=== PATIENT | male | born 1970 | race Caucasian/White ===

== ENCOUNTER 2021-01-07 01:34 | Day surgery (SDC) | payer BC, SELFPAY ==
[2020-12-30 15:11] VITALS: BMI 35.4
[2021-01-07 09:40] VITALS: BP 134/89; PULSE 90; RESP 18; TEMP 35.8; O2SAT 97; BMI 37.0
[2021-01-07] MEDS: LACTATED RINGERS 1,000 ML 150 ML IV CONT (09:51)
--- NOTE | 2021-01-07 10:12 | WPDANESEPPF ---
Anes - Initial Pre Proc Eval Procedure: Operation Date: 01/07/21 10:15 Proposed Procedures p Screening Colonoscopy - Gabriel Blackman MD Date/Time: 01/07/21 10:12 Surgeon: Gabriel Blackman MD Pre Op Diagnosis: hx of colon polyps Patient Data Age: 50 Gender: M Height: 1.75 m Weight: 114 kg Last Vital Signs Temp 96.5 F L 01/07/21 09:40 Pulse 90 01/07/21 09:40 Resp 18 01/07/21 09:40 BP 134/89 01/07/21 09:40 Pulse Ox 97 01/07/21 09:40 Allergies Allergy/AdvReac Type Severity Reaction Status Date / Time GAIL Inhibitors Allergy Unknown Hives Verified 01/07/21 09:38 Home Medications Medication Instructions Recorded Confirmed Type syringe with needle 1 mL 27 x 1/2 #50 each 03/06/20 01/07/21 Rx testosterone cypionate 200 mg/mL See Rx Instructions IM WEEKLY #10 11/10/20 01/07/21 Rx intramuscular oil ml olmesartan 20 mg tablet 20 mg PO DAILY #30 tablet 11/27/20 01/07/21 Rx atorvastatin 40 mg PO DAILY 12/30/20 01/07/21 History cholecalciferol (vitamin D3) 25 mcg PO DAILY 12/30/20 01/07/21 History [Vitamin D3] Patient hx anesthesia problems: none Family hx anesthesia problems: none PMFSH Past Medical History Medical History (Updated 01/07/21 @ 10:12 by Michael Diaz MD) Benign essential hypertension Hyperlipidemia, unspecified KIARRA (obstructive sleep apnea) Family History Family History Father Hypertension Family history of elevated blood lipids Family history of lung cancer Mother Family history of diabetes mellitus in first degree relative Family history of pancreatic cancer Social History Social History Smoking status: Never smoker Alcohol intake: current Drinks per week: 1 Substance use: never Living arrangements: alone Spiritual care concerns: No Anes - Eval Final PreProcedure Day of Procedure 01/07/21 10:12 Patient weight: obese Heart: regular rate and rhythm Lungs: clear to auscultation Airway: Mallampati scale class III Neurological: alert and oriented Last oral intake: >/= 8 hours ASA classification: III Emergent: no Anesthetic plan: proceed Anesthesia type and monitoring: general GIVS and standard monitoring Informed Consent: The patient's anesthetic plan and its attendant risks and benefits were discussed with the patient/family/POA. Questions were solicited and answers provided to the satisfaction of the patient/family/POA.
--- NOTE | 2021-01-07 10:23 | P.CONGI_ITS ---
Assessment and Plan Assessment and plan (1) History of colon polyps: Code(s): Z86.010 - Personal history of colonic polyps Status: Acute Assessment and Plan: Patient has a history of colon polyps for this reason surveillance colonoscopy is recommended now added intervals in the future. GI Consult Note Consult date/time: 01/07/21 10:23 HPI: Dany Nieto is a 50 year old male Presents for screening colonoscopy. Patient states his current weight appetite bowel movements are normal. He denies abdominal pain. He has had no bleeding. Last colonoscopy 2016 revealed colon polyps. He presents today for follow-up examination. Review of Systems Review of Systems: All systems reviewed & are unremarkable except as noted in HPI and below PMFSH Past Medical History Medical History (Updated 01/07/21 @ 10:12 by Michael Diaz MD) Benign essential hypertension Hyperlipidemia, unspecified KIARRA (obstructive sleep apnea) Family History Family History Father Hypertension Family history of elevated blood lipids Family history of lung cancer Mother Family history of diabetes mellitus in first degree relative Family history of pancreatic cancer Social History Social History Smoking status: Never smoker Alcohol intake: current Drinks per week: 1 Substance use: never Living arrangements: alone Spiritual care concerns: No Meds Home Medications and Allergies Home Medications Medication Instructions Recorded Confirmed Type syringe with needle 1 mL 27 x 1/2 #50 each 03/06/20 01/07/21 Rx testosterone cypionate 200 mg/mL See Rx Instructions IM WEEKLY #10 11/10/20 01/07/21 Rx intramuscular oil ml olmesartan 20 mg tablet 20 mg PO DAILY #30 tablet 11/27/20 01/07/21 Rx atorvastatin 40 mg PO DAILY 12/30/20 01/07/21 History cholecalciferol (vitamin D3) 25 mcg PO DAILY 12/30/20 01/07/21 History [Vitamin D3] Allergies Allergy/AdvReac Type Severity Reaction Status Date / Time GAIL Inhibitors Allergy Unknown Hives Verified 01/07/21 09:38 Vital Signs Vital Signs - 24 hr 01/07/21 09:40 Temperature 96.5 F L Pulse Rate 90 Respiratory Rate 18 Blood Pressure 134/89 Pulse Oximetry 97 Exam Narrative: Physical exam reveals patient be alert. Vital signs stable. HEENT exam is unremarkable. Patient is anicteric. Lungs are clear to auscultation and percussion. Heart is without murmur or extra sounds. A bdominal exam bowel sounds are present soft nontender with no organomegaly. Digital external rectal exam is normal.
[2021-01-07 10:59] VITALS: BP 127/78; PULSE 89; RESP 31; O2SAT 93
[2021-01-07 11:09] VITALS: BP 132/89; PULSE 87; RESP 19; O2SAT 93
[2021-01-07 11:28] VITALS: BP 147/98; PULSE 82; RESP 18; O2SAT 97
== END 2021-01-07 11:27 | disposition home or self-care (01) ==
PROVIDERS: PCP Internal Medicine; Visit Provider Internal Medicine Gastroenterology
PROC: 0DJD8ZZ Inspection of Lower Intestinal Tract, Via Natural or Artificial Opening Endoscopic (ICD-10-PCS; CPT 45378; principal; 2021-01-07 10:15)
DX: Z12.11 Encounter for screening for malignant neoplasm of colon (principal); Z86.010 Personal history of colon polyps; I10 Essential (primary) hypertension; E78.5 Hyperlipidemia, unspecified; G47.33 Obstructive sleep apnea (adult) (pediatric)
CPT/HCPCS: 45378; J2704; J7120

== ENCOUNTER 2022-12-20 08:24 | Outpatient (CLI) | payer BC, SELFPAY ==
--- NOTE | 2023-01-02 16:25 | WPDHOMESLEEP ---
Sleep Study - Home Unattended Date of Study: 12/20/22 Ordering Provider: Candelaria Hutton APRN Interpreting Provider: Michelle Li, DO Home Sleep Study Type: Watch PAT Height: 1.75 m Weight: 113.398 kg Body Mass Index: 36.9 Neck Circumference (inches): 18.5 [place]: 17 Reason for Sleep Study Previously diagnosed KIARRA and was on CPAP Sleep History The patient is a 52-year-old male with hypertension, diabetes, hyperlipidemia and previously diagnosed sleep apnea that had a sleep study ordered by his primary care to requalify for CPAP therapy. The patient frequently awakens from sleep short of breath. He rarely awakens at night with heartburn, belching or cough. He frequently snores and is frequently loud enough that others complain. He occasionally has trouble sleeping when he has a cold. He occasionally wakes up gasping for air throughout the night. He frequently has breathing problems at night observed by himself or others. He occasionally sweats excessively at night. He rarely has heart palpitations or irregular heartbeats during the night. He occasionally falls asleep during the day but rarely falls asleep while driving. He denies sleep paralysis, cataplexy and hypnagogic / hypnopompic hallucinations. He rarely has trouble at school or work due to sleepiness. He denies feeling afraid of going to sleep. He denies having nightmares and denies remembering his dreams. He rarely has thoughts racing through his mind. He denies feeling sad or depressed. He rarely has anxiety. He rarely has muscular tension. He rarely notices parts of his body jerk. He denies kicking during the night. He rarely has crawling and aching feelings in his legs but never experiences leg pain during the night. He rarely grinds his teeth during sleep but never awakens with morning jaw pain. He is rarely bothered by pain during the day and rarely awakened by pain during the night. He rarely wakes up feeling stiff in the morning. He rarely wakes up with sore achy muscles. He rarely wakes up with pain in the neck, spine or other joints. The patient goes to bed at 10:00 p.m. on weekdays and 11:00 p.m. on the weekends. It takes him 30 minutes to fall asleep. He wakes up 4 times throughout the night to urinate and is able fall back asleep within 10 minutes. He wakes up at 5:30 a.m. on weekdays and 8:00 a.m. on the weekends. He typically gets 6 hours of sleep per night. He will stay in bed for 10 minutes after waking up in the morning. He currently lives with his girlfriend. He denies consuming any caffeinated beverages within 2 hours of bedtime. He denies engaging in physical exercise before bedtime. He denies reading and watching television before falling asleep. He denies taking naps in the afternoon or the evening. He consumes 1 caffeinated beverage per day. He will consume alcohol on the weekends. He denies tobacco or recreational drug use. [facility] Past Medical History Medical History Benign essential hypertension DM type 2 (diabetes mellitus, type 2) Elevated hemoglobin A1c Hyperlipidemia, unspecified KIARRA (obstructive sleep apnea) Surgical History Surgical History H/O arthroscopic knee surgery Family History Family History Father Hypertension Family history of elevated blood lipids Family history of lung cancer Mother Family history of diabetes mellitus in first degree relative Family history of pancreatic cancer Social History Social History Smoking status: Never smoker Second hand tobacco smoke exposure: Yes Alcohol intake: current Drinks per week: 7 Substance use: never Substance use type: does not use Lack of Transportation: No Lack of Food: Never True Current Housing: [facility]
[2023-01-02 16:38] VITALS: BMI 36.9
== END 2022-12-21 13:28 | disposition home or self-care (01) ==
LOC: ANHCSM 08:25
PROVIDERS: PCP Nurse Practitioner; Visit Provider Nurse Practitioner Family
DX: G47.33 Obstructive sleep apnea (adult) (pediatric) (principal)
CPT/HCPCS: 95800

== ENCOUNTER 2023-07-10 20:00 | Outpatient (CLI) | payer BC, SELFPAY ==
--- NOTE | 2023-08-01 15:33 | WPDSLEEPSTUD ---
Sleep Study Date of Study: 07/10/23 Ordering Provider: Ganesh Ness APRN Interpreting Physician: Michelle Li DO Sleep Study Type: CPAP Titration Height: 1.75 m Weight: 113.398 kg Body Mass Index: 36.9 Neck Circumference (inches): 18.25 [place]: 14 Reason for Sleep Study The patient had a WatchPAT home sleep test done on 12/20/2022 that showed an overall AHI of 70.8 with desaturation down to 51%. Sleep History The patient is a 52-year-old male with hypertension, diabetes, hyperlipidemia and previously diagnosed sleep apnea that had a sleep study ordered by his primary care to requalify for CPAP therapy.? The patient frequently awakens from sleep short of breath.? He rarely awakens at night with heartburn, belching or cough.? He frequently snores and is frequently loud enough that others complain.? He occasionally has trouble sleeping when he has a cold.? He occasionally wakes up gasping for air throughout the night.? He frequently has breathing problems at night observed by himself or others.? He occasionally sweats excessively at night.? He rarely has heart palpitations or irregular heartbeats during the night.? He occasionally falls asleep during the day but rarely falls asleep while driving.? He denies sleep paralysis, cataplexy and hypnagogic / hypnopompic hallucinations.? He rarely has trouble at school or work due to sleepiness.? He denies feeling afraid of going to sleep.? He denies having nightmares and denies remembering his dreams.? He rarely has thoughts racing through his mind.? He denies feeling sad or depressed.? He rarely has anxiety.? He rarely has muscular tension.? He rarely notices parts of his body jerk.? He denies kicking during the night.? He rarely has crawling and aching feelings in his legs but never experiences leg pain during the night.? He rarely grinds his teeth during sleep but never awakens with morning jaw pain.? He is rarely bothered by pain during the day and rarely awakened by pain during the night.? He rarely wakes up feeling stiff in the morning.? He rarely wakes up with sore achy muscles.? He rarely wakes up with pain in the neck, spine or other joints.? The patient goes to bed at 10:00 p.m. on weekdays and 11:00 p.m. on the weekends.? It takes him 30 minutes to fall asleep.? He wakes up 4 times throughout the night to urinate and is able fall back asleep within 10 minutes.? He wakes up at 5:30 a.m. on weekdays and 8:00 a.m. on the weekends.? He typically gets 6 hours of sleep per night.? He will stay in bed for 10 minutes after waking up in the morning.? He currently lives with his girlfriend.? He denies consuming any caffeinated beverages within 2 hours of bedtime.? He denies engaging in physical exercise before bedtime.? He denies reading and watching television before falling asleep.? He denies taking naps in the afternoon or the evening.? He consumes 1 caffeinated beverage per day.? He will consume alcohol on the weekends.? He denies tobacco or recreational drug use. PMFSH Past Medical History Medical History Benign essential hypertension DM type 2 (diabetes mellitus, type 2) Elevated hemoglobin A1c Hyperlipidemia, unspecified KIARRA (obstructive sleep apnea) Surgical History Surgical History History of repair of anterior cruciate ligament of left knee History of repair of anterior cruciate ligament of right knee History of tonsillectomy Family History Family History Father Hypertension Family history of elevated blood lipids Family history of lung cancer Mother Family history of diabetes mellitus in first degree relative Family history of pancreatic cancer Social History Social History Smoking status: Never smoker Second hand tobacco smoke exposure: Yes Alcoh
[2023-08-01 15:34] VITALS: BMI 36.9
== END 2023-07-11 07:10 | disposition home or self-care (01) ==
LOC: ANHCSM 07-11 06:54
PROVIDERS: PCP Nurse Practitioner; Visit Provider Nurse Practitioner
DX: G47.33 Obstructive sleep apnea (adult) (pediatric) (principal)
CPT/HCPCS: 95811

== ENCOUNTER 2024-01-16 09:30 | Outpatient (CLI) | payer BC, SELFPAY ==
[2024-01-16 09:56] LABS: Hematocrit 47.7 % (42.0-52.0); Hemoglobin 16.7 g/dL (14.0-18.0); Mean Corpuscular Hemoglobin 35.2 pg (26-34); Mean Corpuscular Volume 100.4 fl (80-100); Platelet Count Result 169 k/mm3 (150-375); Red Blood Count 4.75 M/mm3 (4.6-6.20); Red Cell Distribution Width 11.9 % (11.5-14.5); White Blood Count 6.2 K/mm3 (4.5-10.0)
[2024-01-16 10:15] LABS: Alanine Aminotransferase 44 U/L (6-50); Albumin Level 4.7 g/dL (3.5-5.1); Alkaline Phosphatase 35 U/L (38-126); Anion Gap 10 mmol/L (4-12); Aspartate Amino Transferase 32 U/L (17-59); Bilirubin,Total 1.2 mg/dL (0.2-1.3); Blood Urea Nitrogen 18 mg/dL (9-20); Calcium 9.5 mg/dL (8.4-10.2); Carbon Dioxide 30 mmol/L (22-30); Chloride 98 mmol/L (98-107); Cholesterol 119 mg/dL (0-200); Estimated Glomerular Filt Rate > 60; Glucose 119 mg/dL (65-110); HDL Direct 39 mg/dL; Potassium 4.3 mmol/L (3.4-5.0); Sodium 138 mmol/L (137-145); Triglycerides 92 mg/dL (<150)
[2024-01-16 10:26] LABS: LDL Cholesterol Direct 60 mg/dL
[2024-01-16 10:43] LABS: Prostate Specific Antigen 1.1 ng/mL (< OR = 4.0)
[2024-01-16 10:56] LABS: Hemoglobin A1C 5.3 % (<5.7)
[2024-01-18 01:04] LABS: Testosterone Total 520 ng/dL (250-1100)
== END 2024-01-16 09:31 | disposition home or self-care (01) ==
PROVIDERS: PCP Nurse Practitioner; Visit Provider Nurse Practitioner
DX: Z79.899 Other long term (current) drug therapy (principal); E11.9 Type 2 diabetes mellitus without complications; E78.5 Hyperlipidemia, unspecified; Z12.5 Encounter for screening for malignant neoplasm of prostate; R79.89 Other specified abnormal findings of blood chemistry
CPT/HCPCS: 36415; 80053; 80061; 83036; 84153; 84403; 85027; G0103

== ENCOUNTER 2024-07-16 10:25 | Outpatient (CLI) | payer BC, SELFPAY ==
[2024-07-16 11:22] LABS: Alanine Aminotransferase 65 U/L (6-50); Albumin Level 4.4 g/dL (3.5-5.1); Alkaline Phosphatase 35 U/L (38-126); Anion Gap 11 mmol/L (4-12); Aspartate Amino Transferase 44 U/L (17-59); Bilirubin,Total 1.2 mg/dL (0.2-1.3); Blood Urea Nitrogen 18 mg/dL (9-20); Calcium 9.3 mg/dL (8.4-10.2); Carbon Dioxide 27 mmol/L (22-30); Chloride 103 mmol/L (98-107); Cholesterol 123 mg/dL (0-200); Estimated Glomerular Filt Rate > 60; Glucose 114 mg/dL (65-110); HDL Direct 45 mg/dL; Potassium 3.9 mmol/L (3.4-5.0); Sodium 141 mmol/L (137-145); Triglycerides 113 mg/dL (<150)
[2024-07-16 11:32] LABS: LDL Cholesterol Direct 49 mg/dL
[2024-07-16 13:02] LABS: Hemoglobin A1C 5.7 % (<5.7)
== END 2024-07-16 10:26 | disposition home or self-care (01) ==
LOC: ANHLAB 10:27
PROVIDERS: PCP Internal Medicine; Visit Provider Nurse Practitioner
DX: E78.5 Hyperlipidemia, unspecified (principal); E11.9 Type 2 diabetes mellitus without complications; R79.89 Other specified abnormal findings of blood chemistry
CPT/HCPCS: 36415; 80053; 80061; 83036; 84403

== ENCOUNTER 2024-08-01 08:36 | Outpatient (CLI) | payer BC, SELFPAY ==
--- NOTE | ~2024-08-01 | US_ITS ---
Limited Abdominal Sonogram: Real-time sonographic imaging of the right upper quadrant was performed. Clinical History: Abnormal blood chemistry findings Findings: The liver appears normal with no evidence of mass lesion or bile duct dilatation. Main por phil vein demonstrates normal direction of flow. The gallbladder is well distended, and appears normal with no evidence of gallstone or wall thickening. The common bile duct measures 4 mm. The visualize d pancreas, aorta, and IVC are unremarkable. Impression: No significant abnormality seen. Reviewed, dictated and finalized at location M. Impression: No significant abnormality seen.
== END 2024-08-01 08:37 | disposition home or self-care (01) ==
PROVIDERS: PCP Internal Medicine; Visit Provider Internal Medicine
DX: R79.89 Other specified abnormal findings of blood chemistry (principal)
CPT/HCPCS: 76705

== ENCOUNTER 2024-11-08 11:18 | Outpatient (CLI) | payer BC, SELFPAY ==
[2024-11-12 19:19] LABS: Testosterone Free 277.4 pg/mL (35.0-155.0); Testosterone Total 933 ng/dL (250-1100)
== END 2024-11-08 11:19 | disposition home or self-care (01) ==
LOC: ANHLAB 11:19
PROVIDERS: PCP Internal Medicine; Visit Provider Internal Medicine
DX: R79.89 Other specified abnormal findings of blood chemistry (principal)
CPT/HCPCS: 36415; 84402; 84403

== ENCOUNTER 2025-02-04 15:52 | Outpatient (CLI) | payer BC, SELFPAY ==
--- OUTSIDE RECORDS SUMMARY | 2025-02-04 15:56 | XMS_ITS | Clinical Summary ---
Author Organization [facility] Address [address] [address] Phone Care Team Providers Care Cath Laboratory Technician Name Role Phone Gilles Christensen DO Primary Care Provider [phone] Allergies No known active allergies Medications testosterone cypionate (DEPO-TESTOTERO NE) 200 mg/mL injectionIndica tions:Androgen Deficiency Inject 1 mL (200 mg total) into the muscle as instructed once a week On 2 Active olmesartan (BENICAR) 20 mg tabletIndicatio ns:hypertension Take 1 tablet (20 mg total) by mouth every morning 2 Active metFORMIN (GLUCOPHAGE) 500 mg tabletIndicatio ns:type 2 diabetes mellitus Take 1 tablet (500 mg total) by mouth 2 (two) times a day with meals 2 Active atorvastatin (LIPITOR) 40 mg tabletIndicatio ns:hyperlipidem ia Take 1 tablet (40 mg total) by mouth every morning 2 Active Ozempic 2 mg/dose (8 mg/3 mL) pen injector injectionIndica tions:type 2 diabetes mellitus,on Inject 2 mg under the skin once a week On Tuesdays 4 Active amLODIPine (NORVASC) 10 mg tablet 4 Active meloxicam (MOBIC) 15 mg tablet TAKE 1/2 TABLET BY MOUTH TWO TIMES DAILY 30 tablet 4 Active sildenafiL (VIAGRA) 100 mg tablet 5 Active metFORMIN (GLUCOPHAGE) 1,000 mg tablet 5 Active Active Problems Problem Noted Date Diagnosed Date Complex tear of triangular fibrocartilage of rig ht wrist 12/26/2023 Surgical History Surgery Date Site/Laterality Comments ARTHROSCOPIC REPAIR ACL 05/15/1994 - 05/14/1995 Left ARTHROSCOPIC REPAIR ACL 05/15/1992 - 05/14/1993 Right TONSILLECTOMY as a child Medical History Medical History Date Comments Diabetes mellitus Hypercholesteremia Hypertension Sleep apnea Family History Medical History Relation Name Comments Diabetes Brother Cancer Father Heart disease Father Hypertension Father Arthritis Mother Diabetes Mother Hypertension Mother Relation Name Status Comments Brother Father Mother Social History Tobacco Use Types Packs/Day Years Used Date Smoking Tobacco: Never Smokeless Tobacco: Never AUDIT-C Answer Date Recorded Q1: How often do you have a drink containing alc ohol? 2-4 times a month 02/13/2024 Q2: How many drinks containi ng alcohol do you have on a typical day when you are drinking? 1 or 2 02/13/2024 Q3: How often do you have si x or more drinks on one occasion? Never 02/13/2024 Personal Safety Answer Date Recorded Have you ever been in or are you currently in a harmful physical or emotional relationship or is someone making you feel afraid or unsafe? Denies 02/13/2024 Sex and Gender Information Value Date Recorded Sex Assigned at Not on file Legal Sex Male 7:50 PM [employer] Gender Identity Not on file Sexual Orientation Not on file Obstetrics History Last Filed Vital Signs Vital Sign Reading Time Taken Comments Blood Pressure 127/83 02/13/2024 5:00 PM CDT Pulse 87 02/13/2024 5:00 PM CDT Temperature 36.2 C (97.2 F) 02/13/2024 4:23 PM CDT Respiratory Rate 15 02/13/2024 5:00 PM CDT Oxygen Saturation 96% 02/13/2024 5:00 PM CDT Inhaled Oxygen Concentration - - Weight 106.6 kg (235 lb) 05/27/2024 11:01 AM [employer] Height 177.2 cm (5' 9.75) 01/25/2024 5:15 PM CD T Body Mass Index 33.96 01/25/2024 5:15 PM CDT Plan of Treatment Health Maintenance Due Date Last Done Comments Colon Cancer Screening-Colonoscopy 1969 Depression Screening 1969 Hepatitis C Screening 1969 Prostate Cancer Screening-PSA 1969 DTaP/Tdap/Td Vaccine (1 - Tdap) 1980 Hepatitis B Screening 11/29/1987 Regular Well Visit/Exam 18-64 11/29/1987 Zoster Vaccine (1 of 2) 11/29/2019 Covid-19 Vaccine (4 - 2024-2 6 season) 2025 04/28/2021, 07/17/2020, 06/19/2020 Influenza Vaccine (#1) 2025 Pneumococcal vaccine <65 Aged Out No longer eligible based on patient's age to complete this topic Medical Devices Implanted Type Area Mold Dumper Device Identifier Shelf Expiration Date Model / Serial / Lot [employer] 6 Hole Ulna Short Plate Bone Titanium Sterile Osteotomy [id number]-Ul06-[id number] - [id number] Implanted:Qty: 1 on 02/13/2024 by Alverto Rocha MD at [facility] Right: [employer] [id number] 08/01/2029 [id number]-UL06-[id number] / / [id number] [employer] 3.5mm 16mm Nonlock Hexalobe Head Screw Bone Nonsterile [id number] - [id number] Implanted:Qty: 4 on 02/13/2024 by Aj, Alverto Smith MD at [facility] Right: [employer] [id number] / / [employer] 3.5mm 18mm Hexalobe Head Screw Bone Titanium Nonsterile Small [id number] - [id number] Implanted:Qty: 2 on 02/13/2024 by Alverto Rocha MD at [facility] Right: [employer] [id number] / / [employer] 3.5mm 14mm Hexalobe Screw Bone Titanium Nonsterile Small Fragment 30-0258 - [id number] Implanted:Qty: 1 on 02/13/2024 by Alverto Rocha MD at [facility] Right: [employer] [id number] / / Insurance BLUE ACC CHOICE [facility] Address: [id number] [place] [address] [place] [address] [employer] [address] [place] [address] Care Teams Cath Laboratory Technician Relationship Specialty Start Date End Date Gilles Christensen DO PCP - General Internal Medicine 08/16/21
[2025-02-04 16:43] LABS: Hemoglobin A1C 5.1 % (<5.7)
[2025-02-04 16:47] LABS: Alanine Aminotransferase 33 U/L (6-50); Albumin Level 4.2 g/dL (3.5-5.1); Alkaline Phosphatase 38 U/L (38-126); Anion Gap 7 mmol/L (4-12); Aspartate Amino Transferase 34 U/L (17-59); Bilirubin,Total 1.3 mg/dL (0.2-1.3); Blood Urea Nitrogen 17 mg/dL (9-20); Calcium 9.1 mg/dL (8.4-10.2); Carbon Dioxide 31 mmol/L (22-30); Chloride 103 mmol/L (98-107); Cholesterol 91 mg/dL (0-200); Estimated Glomerular Filt Rate > 60; Glucose 103 mg/dL (65-110); HDL Direct 37 mg/dL; Potassium 4.4 mmol/L (3.4-5.0); Sodium 141 mmol/L (137-145); Total Protein 7.0 g/dL (6.3-8.2); Triglycerides 111 mg/dL (<150)
[2025-02-04 17:23] LABS: Prostate Specific Antigen 1.1 ng/mL (< OR = 4.0)
== END 2025-02-04 15:53 | disposition home or self-care (01) ==
LOC: ANHLAB 15:53
PROVIDERS: PCP Nurse Practitioner; Referring Provider Nurse Practitioner; Visit Provider Internal Medicine
DX: Z12.5 Encounter for screening for malignant neoplasm of prostate (principal); E78.5 Hyperlipidemia, unspecified; E11.9 Type 2 diabetes mellitus without complications; R79.89 Other specified abnormal findings of blood chemistry
CPT/HCPCS: 36415; 80053; 80061; 83036; 84153; G0103